=== PATIENT | female | born 1980 | race Caucasian/White ===

== ENCOUNTER 2021-09-09 09:16 | Emergency (ER) | payer MEDICAID, SELFPAY ==
[2021-09-09 09:19] VITALS: BP 156/85; PULSE 110; RESP 18; TEMP 36.8; O2SAT 100
--- OUTSIDE RECORDS SUMMARY | 2021-09-09 09:39 | XMS_ITS ---
:1980 Author Care Team Providers Name Role Phone [facility] Primary Care Provider [phone] OLIVER GOLDSMITH Primary Care Provider [phone] [facility] OTHER [phone] Allergies Code Code System Name Reaction Severity Status Onset 05932 RxNorm Prozac ? ? Active ? Medications Name Status Start Date Stop Date ? ? Adderall 20 mg tablet Completed ? 09/24/2020 Take 1 tablet every day by oral route. Vyvanse 60 mg capsule Active ? Not availa ble Take 1 capsule every day by oral route. Problems Name Status Onset Date Source ? Insomnia Active ? History Obstructive Sleep Apnea Syndrome Active ? History Hallucinations Active ? History Procedures None recorded. Results Lab Results None recorded. Past Encounters 09/24/2020 Obstructive Sleep Apnea Syndrome Mima Sen, [employer]: [address] [place] [id number], Ph. Social History Tobacco Smoking Status Never Smoker Vaccine List None recorded. Plan of Care Reminders Provider Appointments None ? ? recorded. Lab None ? ? recorded. Referral None ? ? recorded. Procedures None ? ? recorded. Surgeries None ? ? recorded. Imaging None ? ? recorded. Vitals 09/24/2020 09:30AM Office 30 Height Weight BMI Blood Pressure 191.77 cm 136.44 kg 37.1 kg/m2 149/84 mm[Hg] 04/25/2018 11:15AM Office 30 Height Weight BMI Blood Pressure 189.23 cm 123.51 kg 34.5 kg/m2 110/70 mm[Hg] 03/14/2017 Height Weight Blood Pressure 190.5 cm 126.55 kg 126/84 mm[Hg] 01/24/2017 Height Weight Blood Pressure 190.5 cm 121.7 kg 130/76 mm[Hg] 05/06/2014 Height Weight Blood Pressure 190.5 cm 141.66 kg 102/60 mm[Hg] 02/27/2014 Height Weight Blood Pressure 190.5 cm 139.51 kg 104/60 mm[Hg] 01/16/2014 Height Weight Blood Pressure 190.5 cm 141.15 kg 128/72 mm[Hg]
--- NOTE | 2021-09-09 09:53 | ED.GENADUL_ITS ---
Discharge Plan Disposition Patient Disposition: HOME Condition: Good Discharge Details Clinical Impression: Foot lesion Primary Care Provider: Erika Bauer ED Provider: Sara Diamond Home Meds and New Rx's Prescriptions: Discontinued clonazepam 1 MG tablet 1 mg PO HS 0RF lithium carbonate 150 MG capsule 150 mg PO 0RF fluvoxamine 25 MG tablet 25 mg PO BID 0RF Label Comments: pt doesn't know the dose zolpidem [Ambien] 5 MG tablet 5 mg PO HS 0RF Discharge Instructions Additional Instructions: Warm soaks in water for 15 to 20 minutes every 3-4 hours with Epsom salt Apply topical steroid twice daily for no longer than 7 days, 1% Hydrocortisone works well Elevate your feet and keep warm socks in place Please return should you have new or complaints including persistent skin discoloration, dramatic change in pain Recheck by your doctor next week Referrals: Erika Bauer [Primary Care Provider] - Medical Decision Making Patient will be treated for likely chilblains reaction to covid vaccine Patient appears well, her distal pulses are intact She is in no acute distress She will try topical steroids and warm compresses Given the threshold to return with new or worsening complaints Recheck next week recommended HPI General Date/Time Provider Initiated Documentation: 09/09/21 09:20 . HPI Narrative: This 41-year-old female presents with a rash to her parents which started roughly 3 days ago. Denies history of similar symptoms in the past. She takes a multivitamin and Vyvanse but denies any new medications aside from a vaccine that she did receive on Tuesday of last week. She had Covid infection in the middle of June this year. She states that since her course is relatively benign. She denies any current Covid symptoms. She denies any pain to the lesions. She states she has been soaking her toes at home. She denies any chest pain or shortness of breath. She has any dizziness or weakness. She denies any additional lesions in other locations. Related Data Allergies Allergy/AdvReac Type Severity Reaction Status Date / Time fluoxetine HCl [From Prozac] Allergy deoresion Unverified 04/17/13 11:05 General Stated Complaint: RashLesion RADHA: 4 Review of Systems All systems reviewed & are unremarkable except as noted in HPI and below PFSH All Active Problems (Updated 03/16/22 @ 09:58 by BILLY Stuart) Foot lesion (Acute) Social History Smoking/Tobacco Use Status: Never Smoking risk assessment performed?: Yes Drug use: Never Exam Const General: cooperative and comfortable Orientation: alert and oriented x3 Eyes Pupils: PERRL Resp Effort & Inspection: normal respiratory effort Cardio Rate: regular rate Extrem Other: chillbains type rash noted to bilateral great toes and 2nd and 3rd toes bilaterally blanches, dp and pt pulses intact Course Vital Signs Vital signs: Vital Signs Temperature 36.8 C 09/09/21 09:19 Pulse 110 H 09/09/21 09:19 Respiratory Rate 100 H 09/09/21 09:19 Blood Pressure 156/85 H 09/09/21 09:19 Pulse Oximetry 100 09/09/21 09:19 Temperature 36.8 C 09/09/21 09:19 Temperature Source Skin 09/09/21 09:19 Pulse 110 H 09/09/21 09:19 Respiratory Rate 100 H 09/09/21 09:19 Blood Pressure 156/85 H 09/09/21 09:19 Blood Pressure Position Sitting 09/09/21 09:19 Pulse Oximetry 100 09/09/21 09:19 Oxygen Delivery Method Room Air 09/09/21 09:19 Oxygen Flow Rate 0 09/09/21 09:19 Pain Level 0 09/09/21 09:19
== END 2021-09-09 10:13 | disposition home or self-care (01) ==
PROVIDERS: Emergency Provider Physician Assistant; PCP Family Medicine
DX: L98.8 Other specified disorders of the skin and subcutaneous tissue (principal); Z86.16 Personal history of COVID-19
CPT/HCPCS: 99282

== ENCOUNTER 2024-08-22 03:19 | Outpatient (CLI) | payer MEDICAID, SELFPAY ==
[2024-08-22 09:45] LABS: HCT 40.8 % (36.0-46.0); MCHC 31.9 % (32.0-36.0); MCV 97 fL (80-95); MPV 11.1 fL (8.0-11.0); Platelet Count 216 10^3/uL (130-400); RBC 4.19 10^6/uL (3.93-5.22); RDW 13.2 % (11.7-14.6); RDW-SD 47.1 fL; WBC 6.44 10^3/uL (4.4-10.8)
[2024-08-22 10:02] LABS: ALT 24 U/L (14-59); AST 12 U/L (15-37); Albumin 3.9 g/dL (3.4-5.0); Alkaline Phosphatase 73 U/L (46-116); Anion Gap 10.3 mmol/L (3-11); BUN 14 mg/dL (7-18); Bilirubin, Total 0.32 mg/dL (0.2-1.0); CO2 25.7 mmol/L (21.0-32.0); CREATININE 0.9 mg/dL (0.55-1.02); Calcium 9.3 mg/dL (8.5-10.1); Calculated LDL 167 mg/dL (<100); Chloride 105 mmol/L (98-107); Cholesterol 251 mg/dL (<200); Estimated GFR 79.85 (mL/min/1.73m2); Glucose 96 mg/dL (74-106); HDL Cholesterol 57 mg/dL (40-60); Potassium 4.2 mmol/L (3.5-5.1); Sodium 141 mmol/L (136-145); Total Protein 7.7 g/dL (6.4-8.2); Triglyceride 138 mg/dL (<150)
== END 2024-08-22 03:20 | disposition home or self-care (01) ==
LOC: LBO 03:20
PROVIDERS: PCP Family Medicine; Visit Provider Family Medicine
DX: Z00.00 Encounter for general adult medical examination without abnormal findings (principal)
CPT/HCPCS: 36415; 80053; 80061; 85027